=== PATIENT | female | born 2000 | race Caucasian/White ===

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

== ENCOUNTER 2018-05-15 06:56 | Day surgery (SDC) | payer MEDICAID ==
[2018-05-15] MEDS ORDERED: BUPIVACAINE 0.5% 30 ML SDV ONE ×2 (07:13→09:18)
[2018-05-15] MEDS ORDERED: LIDOCAINE 1% 300 MG/30 ML SDV ONE ×2 (07:13→09:18)
[2018-05-15] MEDS ORDERED: LR 1,000 ML IV ONE (07:28)
[2018-05-15] MEDS ORDERED: LIDOCAINE 1% 2 ML INJ ID PRN (07:28)
--- NOTE | 2018-05-15 08:50 | PDHPUP ---
History & Physical Update H&P update statement: This history and physical update is based on an assessment of the patient which was completed after admission or registration (within 24 hours), but prior to the surgery/procedure. H&P update: H&P reviewed & patient examined, no change in patient's condition since H&P completed
[2018-05-15] MEDS ORDERED: MIDAZOLAM 2 MG/2 ML VIAL IVP ONE (09:15)
--- NOTE | 2018-05-15 09:15 | PDANEPAE ---
ANE History of Present Illness submandibular lymph node excision ANE Past Medical History - Cardiovascular History Hx Hypertension: No Hx Arrhythmias: No Hx Chest Pain: No Hx Coronary Artery / Peripheral Vascular Disease: No Hx CHF / Valvular Disease: No Hx Palpitations: No - Pulmonary History Hx COPD: No Hx Asthma/Reactive Airway Disease: Yes Hx Recent Upper Respiratory Infection: No Hx Oxygen in Use at Home: No Hx Sleep Apnea: No Sleep Apnea Screening Result - Last Documented: Negative Pulmonary History Comment: has inhaler, hasn't used in awhile - Neurologic History Hx Cerebrovascular Accident: No Hx Seizures: No Hx Dementia: No - Endocrine History Hx Diabetes: No - Renal History Hx Renal Disorders: No - Liver History Hx Hepatic Disorders: No - Neurological & Psychiatric Hx Hx Neurological and Psychiatric Disorders: Yes Neurological / Psychiatric History Comment: insomnia. anxiety. depression - Cancer History Hx Cancer: No - Congenital Disorder History Hx Congenital Disorders: No - GI History Hx Gastrointestinal Disorders: No - Other Health History Other Health History: rash to top half of body and arms- has had for 2 months - Chronic Pain History Chronic Pain: No - Surgical History Prior Surgeries: appy at 5 yo. right tib/ fib fx with repair ANE Review of Systems Review of systems is: negative Review of Systems: - Exercise capacity METS (RN): 4 METS ANE Patient History - Allergies Allergies/Adverse Reactions: Penicillins Allergy (Verified 05/15/18 07:33) hives and itchy - Home Medications Home medications: home medication list seen and reviewed Home Medications: DULoxetine 03/30/17 [Last Taken Unknown] Herbals/Supplements -Info Only 05/14/18 [Last Taken 05/14/18] Ibuprofen HS 05/14/18 [Last Taken 05/14/18] traZODone HS 05/14/18 [Last Taken Unknown] - NPO status NPO Status: no food or drink >8 hours NPO Since - Liquids (Date): 05/14/18 NPO Since - Liquids (Time): 23:00 NPO Since - Solids (Date): 05/14/18 NPO Since - Solids (Time): 22:00 - Anes Hx Anes Hx: no prior problems - Smoking Hx Smoking Status: Heavy smoker - Family Anes Hx Family Anes Hx: none Family Hx Anesthesia Complications: none ANE Labs/Vital Signs - Vital Signs Vital Signs: reviewed preoperatively; see RN documention for details Blood Pressure: 126/76 Heart Rate: 81 Respiratory Rate: 18 O2 Sat (%): 96 Height: 170.18 cm Weight: 65.771 kg ANE Physical Exam - Airway Neck exam: FROM Mallampati Score: Class 1 Mouth exam: normal dental/mouth exam - Pulmonary Pulmonary: no respiratory distress - Cardiovascular Cardiovascular: regular rate and rhythym - ASA Status ASA Status: II ANE Anesthesia Plan Anesthesia Plan: GA w LMA
[2018-05-15] MEDS ORDERED: ONDANSETRON 4 MG/2 ML VIAL ONE (09:26)
[2018-05-15] MEDS ORDERED: DEXAMETHASONE 4 MG/ML VIAL ONE (09:26)
[2018-05-15] MEDS ORDERED: fentaNYL 100 MCG/2 ML INJ ONE ×2 (09:26→10:43)
[2018-05-15] MEDS ORDERED: LIDOCAINE 2% 100 MG/5 ML SYR ONE (09:26)
[2018-05-15] MEDS ORDERED: PROPOFOL 200 MG/20 ML VIAL ONE (09:26)
[2018-05-15] MEDS ORDERED: ACETAMINOPHEN 500 MG TAB PO PRN (09:58)
[2018-05-15] MEDS ORDERED: ONDANSETRON 4 MG/2 ML VIAL IVP PRN (09:58)
[2018-05-15] MEDS ORDERED: HYDROCODONE/APAP 5/325 TAB PO PRN (09:58)
[2018-05-15] MEDS ORDERED: NALOXONE HCL 0.4 MG/ML INJ IVP PRN (09:58)
[2018-05-15] MEDS ORDERED: oxyCODONE IR 5 MG TAB PO PRN (09:58)
[2018-05-15] MEDS ORDERED: PROMETHAZINE HCL 25 MG/ML INJ IVP PRN (09:58)
[2018-05-15] MEDS ORDERED: HYDROmorphONE/DILAUDID 2 MG/ML INJ IVP PRN (09:58)
[2018-05-15] MEDS ORDERED: DEXAMETHASONE 4 MG/ML VIAL IVP PRN (09:58)
[2018-05-15] MEDS ORDERED: fentaNYL 100 MCG/2 ML INJ IVP PRN (09:58)
--- NOTE | 2018-05-15 09:58 | POSTANESTH ---
Post Anesthetic Evaluation Cardiovascular Status: Normal, Stable, Similar to Pre-Op Cond Respiratory Status: Similar to Pre-op Cond. Level of Consciousness/Mental Status: Can Participate in Eval, Moderately Sleepy Pain Control: Adequate, Prn Tx Ordered Nausea/Vomiting Control: Adequate, Prn Tx Ordered Complications Possibly Related to Anesthesia: None Noted
--- NOTE | 2018-05-15 11:18 | POSTOPPROG ---
Post Op Note Date of Operation: 05/15/18 Surgeon: Kenny Denton [employer] Driver: estefani Anesthesiologist: Cosmo Anesthesia: LMA Pre-op Diagnosis: right cervical adenopathy Post-op Diagnosis: same Procedure: excision cervical/supraclav ln deep Findings: multiple fleshy LN Inf/Abcess present in the surg proc area at time of surgery?: No EBL: Minimal Specimen(s): path and culture of cervial LN
[2018-05-15] MEDS ORDERED: HYDROmorphONE/DILAUDID 2 MG/ML INJ ONE (11:23)
[2018-05-15 12:20] VITALS: BP 131/77
--- NOTE | 2018-05-15 17:22 | SUROPNOTE ---
[facility] Operative Report - Surgery Date of surgery 05/15/2018 Indications for procedure: This is a 18-year-old woman who presents to the hospital for elective lymph node biopsy. She has 2 cm lymph node in the submandibular region multiple lymph nodes incisions 1 through 5 of her right neck. She has had these lesions for greater than 3 months. She has had no weight loss or constitutional symptoms. More lymph nodes have been appearing over last few weeks Preop diagnosis: Right neck lymphadenopathy Postop diagnosis same Procedure: Lymph node biopsy deep right neck/cervical Surgeon: Corrie Anesthesiologist: Dr. Wilburn General LMA anesthesia Specimen: Lymph nodes to culture and fresh for pathology to do flow and histopathology EBL: 5 mL Complications: None Details of procedure: Patient was brought to the operating room placed supine on operating table. General LMAy anesthesia was induced in the standard fashion. Her neck was prepped with chlorhexidine and draped sterilely. Time-out procedure was then performed according to institutional standards. Local anesthetic was infused in skin and subcutaneous tissues of the biopsy sites. Three separate incisions were used to obtain a cervical supraclavicular/station 5 lymph node, and 2 separate incisions were made to obtain station 1 lymph nodes. Incisions were tube electrocautery after dividing the platysma the lymph nodes were able to be circum Haitian Shiley dissected out and I and electrocautery and tie ligation were used to control the vessels at the hilum. The 2 separate incisions made at the submandibular region of the sternocleidomastoid had to be retracted laterally for her of the lateral incision from the medial incision of the hilum had to be controlled with Vicryl. The incisions were reapproximated by placing the on platysma back together with interrupted sutures and using 4 Monocryl to reapproximate the skin Dermabond was applied the patient was awakened extubated and taken to recovery room stable condition needle instrument sponge counts were verified to be correct
== END 2018-05-15 12:50 | disposition home or self-care (01) ==
LOC: FSGY 06:56
PROVIDERS: ATTEND Surgery
PROC: 07B10ZX Excision of Right Neck Lymphatic, Open Approach, Diagnostic (ICD-10-PCS; principal; 2018-05-15 08:30)
DX: I88.9 Nonspecific lymphadenitis, unspecified (principal); R21 Rash and other nonspecific skin eruption; F17.210 Nicotine dependence, cigarettes, uncomplicated; F41.9 Anxiety disorder, unspecified
CPT/HCPCS: 88184-90; 88185-91; J1100; J1170; J2001; J2250; J2405; J2704; J3010

== ENCOUNTER 2018-08-31 15:05 | Emergency (ER) | payer MEDICAID | END 2018-08-31 17:39 | disposition home or self-care (01) ==

== ENCOUNTER 2018-09-05 09:36 | Observation (INO) | payer MEDICAID | END 2018-09-06 10:00 | disposition home or self-care (01) | LOC: F2N 09:36 ==